=== PATIENT | male | born 2000 | race Caucasian/White ===

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

== ENCOUNTER 2023-11-12 19:49 | Emergency (ER) | payer BC ==
--- NOTE | 2023-11-12 20:08 | ED ---
General Adult HPI - General Source: patient Mode of arrival: ambulatory Limitations: no limitations <Man Padilla - Last Filed: 11/12/23 20:08> - General Source: patient, RN notes reviewed Mode of arrival: ambulatory Limitations: no limitations <Lauryn Moss - Last Filed: 11/12/23 23:40> - General Chief complaint: Upper Respiratory Infection Stated complaint: unable to eat Time Seen by Provider: 11/12/23 20:06 - History of Present Illness Initial comments: 22 year old male presenting to the ED with a chief complaint of decreased appetite. Patient states 2 days ago onset of fever, chills, body aches, decreased appetite. Reports the symptoms have mostly resolved however today still has ongoing decreased appetite prompting presentation to the ED for further evaluation. He notes that he was just at urgent care today for the same. (Man Padilla) 22-year-old male presents to the emergency department for evaluation of decreased appetite. Patient states that he has had fever, chills, muscle aches. He states that these have improved but he still notes a decreased appetite. He does report that he has been able to drink Powerade and Gatorade. He states that he has not been taking an as many calories as he usually does. He states "I cannot eat "when asked why he cannot eat he states he does not have pain or nausea or vomiting but cannot eat because he does not have an appetite. He does admit to some diarrhea. (Lauryn Moss) - Related Data Home Medications Medication Instructions Recorded Confirmed Dm/Acetaminophen/Doxylamine [Vicks 2 cap PO Q6H PRN 02/15/19 02/15/19 Nyquil Liquicaps] Previous Rx's Medication Instructions Recorded Albuterol Sulfate [Proair Hfa] 1 - 2 puff INHALATION Q4H PRN #1 02/15/19 inhaler Azithromycin [Zithromax Z-pack (6 0 mg PO DIRECTED #1 pack 02/15/19 tabs)] Benzonatate [Tessalon Perles] 100 mg PO TID PRN #15 capsule 02/15/19 Allergies Allergy/AdvReac Type Severity Reaction Status Date / Time Iodinated Contrast Media AdvReac Nausea & Verified 11/12/23 20:00 [Iodinated Contrast Media - Vomiting IV Dye] scallops AdvReac Nausea & Verified 11/12/23 20:00 Vomiting Review of Systems ROS Other: All systems not noted in ROS Statement are negative. <ValerieGabiMan - Last Filed: 11/12/23 20:08> ROS Other: All systems not noted in ROS Statement are negative. <Lauryn Moss - Last Filed: 11/12/23 23:40> ROS Statement: Those systems with pertinent positive or pertinent negative responses have been documented in the HPI. Past Medical History Additional Past Medical History / Comment(s): arachnoid cyst, migraines, kidney stones, History of Any Multi-Drug Resistant Organisms: None Reported Past Surgical History: Orthopedic Surgery Additional Past Surgical History / Comment(s): Left arm , Past Psychological History: No Psychological Hx Reported Smoking Status: Never smoker Past Alcohol Use History: None Reported Past Drug Use History: Marijuana <JacintaalejandrinaMan rubio - Last Filed: 11/12/23 20:08> General Exam Limitations: no limitations General appearance: alert <ValerieMan - Last Filed: 11/12/23 20:08> Limitations: no limitations General appearance: alert, in no apparent distress Head exam: Present: atraumatic, normocephalic, normal inspection Eye exam: Present: normal appearance, PERRL, EOMI. Absent: scleral icterus, conjunctival injection, periorbital swelling ENT exam: Present: normal exam, mucous membranes moist Neck exam: Present: normal inspection. Absent: tenderness, meningismus, lymphadenopathy Respiratory exam: Present: normal lung sounds bilaterally. Absent: respiratory distress, wheezes, rales, rhonchi, stridor Cardiovascular Exam: Present: regular rate, normal rhythm, normal heart sounds. Absent: systolic murmur, diastolic murmur, rubs, gallop, clicks GI/Abdominal exam: Present: soft, normal bowel sounds. Absent: distended, tenderness, guarding, rebound, rigid Extremities exam: Present: normal inspection, full ROM, normal capillary refill. Absent: tenderness, pedal edema, joint swelling, calf tenderness Back exam: Present: normal inspection Neurological exam: Present: alert, oriented X3 Psychiatric exam: Present: normal affect, normal mood Skin exam: Present: warm, dry, intact, normal color. Absent: rash <Lauryn Moss - Last Filed: 11/12/23 23:40> - General Exam Comments Initial Comments: Visual Physical Exam Vital signs reviewed General: Well-appearing, nontoxic, no acute distress. Head: Normocephalic, atraumatic Eyes: PERRLA, EOMI ENT: Airway patent Chest: Nonlabored breathing Skin: No visual rash, normal skin tone Neuro: Alert and oriented 3 Musculoskeletal: No gross abnormalities (Man Padilla) Course Vital Signs 11/12/23 11/12/23 20:01 22:16 Temperature 99.0 F Pulse Rate 101 H Respiratory 16 16 Rate Blood Pressure 118/69 O2 Sat by Pulse 96 Oximetry Medical Decision Making <Man Padilla - Last Filed: 11/12/23 20:08> <Lauryn Moss - Last Filed: 11/12/23 23:40> - Medical Decision Making Quicknote portion performed. Signed Man Padilla PA-C (Man Padilla) Was pt. sent in by a medical professional or institution (Dr. PA, INSTRUCTIONAL TECHNOLOGY DIRECTOR, urgent care, hospital, or alf...) When possible be specific @ -No Did you speak to anyone other than the patient for history (EMS, parent, family, police, friend...)? What history was obtained from this source @ -No Did you review nursing and triage notes (agree or disagree)? Why? @ -I reviewed and agree with nursing and triage notes Were old charts reviewed (outside hosp., previous admission, EMS record, old EKG, old radiological studies, urgent care reports/EKG's, alf records)? Report findings @ -No old charts were reviewed Differential Diagnosis (chest pain, altered mental status, abdominal pain women, abdominal pain men, vaginal bleeding, weakness, fever, dyspnea, syncope, he adache, dizziness, GI bleed, back pain, seizure, CVA, palpatations, mental health, musculoskeletal)? @ -Viral syndrome, COVID, influenza, RSV, gastroenteritis, this is not all inclusive EKG interpreted by me (3pts min.). @ -None X-rays interpreted by me (1pt min.). @ -None done CT interpreted by me (1pt min.). @ -None done U/S interpreted by me (1pt. min.). @ -None done What testing was considered but not performed or refused? (CT, X-rays, U/S, labs)? Why? @ -None What meds were considered but not given or refused? Why? @ -None Did you discuss the management of the patient with other professionals (professionals i.e. , PA, INSTRUCTIONAL TECHNOLOGY DIRECTOR, lab, RT, psych nurse, high school social studies teacher, deputy fire chief, teacher, ship's officer, dependency case manager)? Give summary @ -No Was smoking cessation discussed for >3mins.? @ -No Was critical care preformed (if so, how long)? @ -No Were there social determinants of health that impacted care today? How? (Homelessness, low income, unemployed, alcoholism, drug addiction, monte sportation, low edu. Level, literacy, decrease access to med. care, [facility], rehab)? @ -No Was there de-escalation of care discussed even if they declined (Discuss DNR or withdrawal of care, Hospice)? DNR status @ -No What co-morbidities impacted this encounter? (DM, HTN, Smoking, COPD, CAD, Cancer, CVA, ARF, Chemo, Hep., AIDS, mental health diagnosis, sleep apnea, morbid obesity)? @ -None Was patient admitted / discharged? Hospital course, mention meds given and route, prescriptions, significant lab abnormalities, going to OR and other pertinent info. @ -Charge. Patient presented to the emergency department for evaluation of decreased appetite. He states that he has had decreased caloric intake. He does report drinking multiple Gatorade and Powerade's within the past couple of days. COVID, influenza, RSV negative. He does not have any tenderness to palpation on the examination of the abdomen. Discussed that this is likely another viral illness. Patient was requesting IV. Discussed the patient that since he is tolerating oral intake that an IV would not be necessary. Patient will be discharged home. Patient stable at time of discharge. Case discussed with Dr. Murry. Undiagnosed new problem with uncertain prognosis? @ -No Drug Therapy requiring intensive monitoring for toxicity (Heparin, Nitro, Insulin, Cardizem)? @ -No Were any procedures done? @ -No Diagnosis/symptom? @ -Viral syndrome, decreased appetite Acute, or Chronic, or Acute on Chronic? @ -Acute Uncomplicated (without systemic symptoms) or Complicated (systemic symptoms)? @ -Uncomplicated Side effects of treatment? @ -No Exacerbation, Progression, or Severe Exacerbation? @ -No Poses a threat to life or bodily function? How? (Chest pain, [place], [place], pneumonia, PE, COPD, DKA, ARF, appy, cholecystitis, CVA, Diverticulitis, Homicidal, Suicidal, threat to staff... and all critical care pts) @ -No (Lauryn Moss) - Lab Data Lab Results 11/12/23 Range/Units 20:06 Influenza Type A (PCR) Not Detected (Not Detectd) Influenza Type B (PCR) Not Detected (Not Detectd) RSV (PCR) Not Detected (Not Detectd) SARS-CoV-2 (PCR) Not Detected (Not Detectd) Disposition <Man Padilla - Last Filed: 11/12/23 20:08> Is patient prescribed a controlled substance at d/c from ED?: No <Lauryn Moss - Last Filed: 11/12/23 23:40> Clinical Impression: Viral syndrome, Loss of appetite Disposition: HOME SELF-CARE Condition: Stable Instructions (If sedation given, give patient instructions): Upper Respiratory Infection (ED) Additional Instructions: Please follow up with your primary care provider. Return to the emergency department for new or worsening symptoms. Referrals: None,Stated [Primary Care Provider] - 1-2 days
[2023-11-12 20:11] VITALS: BP 118/69; PULSE 101; RESP 16; TEMP 99
== END 2023-11-12 22:17 | disposition home or self-care (01) ==
LOC: EC 19:49
DX: R63.0 Anorexia (principal); F12.90 Cannabis use, unspecified, uncomplicated; Z91.041 Radiographic dye allergy status; Z88.8 Allergy status to other drugs, medicaments and biological substances; Z68.26 Body mass index [BMI] 26.0-26.9, adult; Z20.822 Contact with and (suspected) exposure to COVID-19
CPT/HCPCS: 87636; 99283